=== PATIENT | male | born 1975 | race Caucasian/White ===

== ENCOUNTER 2022-03-08 23:16 | Emergency (ER) | payer MEDICAID ==
[~2022-03-08] VITALS: Ht 185.4 cm; Wt 95.3 kg
[2022-03-08 23:34] VITALS: BP_SYST 137
[2022-03-09] MEDS ORDERED: LIDOCAINE 1%, 20 ML MDV 20 ML ONE (00:39)
[2022-03-09] MEDS ORDERED: LIDOCAINE 1% 10 MG/ML, 20 ML MDV INJ ONE (00:45)
[2022-03-09] MEDS ORDERED: CEPH250C PO (00:51)
[2022-03-09] MEDS ORDERED: DIPH-TET-PERTUS Vaccine 0.5 ML VIAL (ADACEL) I.M. ONE (01:00)
--- NOTE | 2022-03-09 01:36 | NUR ---
DISCHARGE INSTRUCTIONS COMPLETED, PATIENT VERBALIZED UNDERSTANDING. PAPER WORK SIGNED BY PATIENT AND GIVEN TO HIM. PATIENT IN A STABLE CONDITION WALKED OFF THE ED.
== END 2022-03-09 01:31 | disposition home or self-care (01) ==
LOC: SED 23:16
DX: M79.5 Residual foreign body in soft tissue (principal); Z79.899 Other long term (current) drug therapy
CPT/HCPCS: 10120; 90471; 90715; 99285; J2001